=== PATIENT | male | born 1995 | race Asian ===

== ENCOUNTER 2017-01-28 10:56 | Emergency (ER) | payer SELFPAY ==
[~2017-01-28] VITALS: Ht 182.9 cm; Wt 82.0 kg
[2017-01-28 10:57] VITALS: BP 136/87; PULSE 72; RESP 20; TEMP 97.6; O2SAT 100
[2017-01-28 11:46] VITALS: RESP 20; O2SAT 98
--- NOTE | 2017-01-28 12:24 | EKG ---
Date Performed: 01/28/2017 Time Performed: 11:11:19 PTAGE: 22 years EKG: Sinus rhythm INCOMPLETE RIGHT BUNDLE BRANCH BLOCK BORDERLINE ECG NO PREVIOUS TRACING DOCTOR: Bill Voss Interpretating Date/Time 01/28/2017 12:24:01
[2017-01-28 12:28] LABS: ANION GAP 4 MEQ/L (5-15); BICARBONATE 31.1 MEQ/L (21.0-32.0); BLOOD UREA NITROGEN 17 MG/DL (7-18); CHLORIDE 106 MEQ/L (98-107); GLOMERULAR FILTRATION RATE 101 ML/MIN (>89); POTASSIUM 4.1 MEQ/L (3.5-5.1); SODIUM (NA) 141 MEQ/L (136-145)
--- NOTE | 2017-01-28 12:44 | PD ---
HPI Chief Complaint: Chest Pain Time Seen by Provider: 12:38 Travel History International Travel<30 days: No Contact w/Intl Traveler<30days: No Traveled to known affect area: No History of Present Illness HPI 22-year-old male that presents to the ED for evaluation of left-sided chest pain through to the back. Per patient she's had this on and off for the past for this. Nothing makes it better or worse. Per patient he has no injuries. He does tell me that he does do heavy lifting but denies any particular injury. He states that the pain is achy and not really severe. Per patient the pain is not reproducible with touch or with movement. 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 Patient is originally from [facility] but denies any excessive white more than 8 hours. Per patient he did flu yesterday about 2 hours for training. She denies any cardiac disease. He denies any family history of cardiac disease. He asked an allergy to penicillin. He denies any smoking or substance abuse. Allergies to penicillin. He has not seen anybody for this. Per patient he got concerned because the pain continues and is not improving. Per patient she is pain-free at this time. Per patient the pain is not constant but comes and goes. Per patient the pain is 3 out of 10. PFSH Past Medical History Medical History: Denies Significant Hx Tetanus Vaccination: > 5 Years Influenza Vaccination: Yes Past Surgical History Other Surgery: Yes (LASIK EYE SURGERY) Social History Alcohol Use: No Tobacco Use: No Substance Use: No Allergies-Medications (Allergen,Severity, Reaction): Coded Allergies: Penicillin (Verified Allergy, Unknown, 01/28/17) Reported Meds & Prescriptions Reported Meds & Active Scripts Active Zantac (Ranitidine HCl) 150 Mg Tab 150 Mg PO BID PRN Diclofenac Sodium DR (Diclofenac Sodium) 75 Mg Tabdr 75 Mg PO BID PRN Review of Systems Except as stated in HPI: all other systems reviewed are Neg Physical Exam Narrative GENERAL: SKIN: Warm and dry. HEAD: Atraumatic. Normocephalic. EYES: Pupils equal and round. No scleral icterus. No injection or drainage. ENT: No nasal bleeding or discharge. Mucous membranes pink and moist. Tongue is midline. No uvula deviation. NECK: Trachea midline. No JVD. CARDIOVASCULAR: Regular rate and rhythm. No murmurs, S3, S4. Chest pain is not reproducible with touch. No rashes noted. RESPIRATORY: No accessory muscle use. Clear to auscultation. Breath sounds equal bilaterally. GASTROINTESTINAL: Abdomen soft, non-tender, nondistended. Hepatic and splenic margins not palpable. MUSCULOSKELETAL: Extremities without clubbing, cyanosis, or edema. No obvious deformities. Full range of motion of the upper and lower extremities bilaterally. 2+ pulses bilaterally. NEUROLOGICAL: Awake and alert. No obvious cranial nerve deficits. Motor grossly within normal limits. Five out of 5 muscle strength in the arms and legs. Normal speech. PSYCHIATRIC: Appropriate mood and affect; insight and judgment normal. Data Data Last Documented VS Vital Signs Date Time Temp Pulse Resp B/P Pulse Ox O2 Delivery O2 Flow Rate FiO2 01/28/17 11:46 20 98 Room Air 01/28/17 11:41 65 01/28/17 10:57 97.6 136/87 Orders Electrocardiogram (01/28/17 ) Basic Metabolic Panel (Bmp) (01/28/17 11:29) Troponin I (01/28/17 11:29) D-Dimer (01/28/17 11:29) Chest, Single Ap (01/28/17 11:29) Iv Access Insert/Monitor (01/28/17 11:29) Ecg Monitoring (01/28/17 11:29) Oximetry (01/28/17 11:29) Labs Laboratory Tests Test 01/28/17 11:50 D-Dimer Quantitative (PE/DVT) 0.24 MG/L FEU Sodium Level 141 MEQ/L Potassium Level 4.1 MEQ/L Chloride Level 106 MEQ/L Carbon Dioxide Level 31.1 MEQ/L Anion Gap 4 MEQ/L Blood Urea Nitrogen 17 MG/DL Creatinine 0.92 MG/DL Estimat Glomerular Filtration 101 ML/MIN Rate Random Glucose 87 MG/DL Calcium Level 9.1 MG/DL Troponin I LESS THAN 0.02 NG/ML MDM Medical Decision Making Medical Screen Exam Complete: Yes Emergency Medical Condition: Yes Medical Record Reviewed: Yes Interpretation(s) BMP Diagram 01/28/17 11:50 D-dimer negative. Troponin negative. EKG show no sign of acute ischemia or arrhythmia read by me and attending. CXR negative Differential Diagnosis Chest pain versus a typical chest pain versus ACS versus PE versus pneumothorax versus pneumonia Narrative Course 22-year-old male that presents to the ED for evaluation of left-sided chest pain. Patient was properly examined and was found to have signs and symptoms of unclear etiology. I do not believe this is cardiac in nature but will do troponin and EKG to make sure there is no sign of acute disease. 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 Chest x-ray was done twice a pneumothorax or acute disease. Labs and imaging were all essentially unremarkable. Patient was reassured. From history and physical this is likely a typical chest pain most likely muscular. I will prescribe patient a prescription for diclofenac sodium to use for the pain if needed. Patient also concerning could be related to gastritis. I do not believe this is related but patient does describe it as a burning sensation at times. At his time I will give patient prescription for Zantac to cover for this althought this appears to be less likely to me. I recommend rest of the chest muscles for at least a week until completely better. Follow with PCP. See ED worsening symptoms. Diagnosis Primary Impression: Atypical chest pain Additional Impression: Chest pain, muscular Patient Instructions: General Instructions Additional Instructions: Take medication as prescribed. Do not do any heavy lifting with your chest until completely better. Per properly for about a week. Apply ice or warm compresses to the area of pain if you have any. Follow closely with PCP if this continues to be an issue. See ED if worsening symptoms. Med/Other Pt SpecificInfo: Prescription(s) given Scripts Ranitidine (Zantac)150 Mg Rat638 Mg PO BID PRN (PAIN SCALE 1 TO 10) #20 TAB Prov:Ken Tesfaye MD 01/28/[address] 75 Mg Tabdr75 Mg PO BID PRN (PAIN SCALE 1 TO 10) #20 TAB Prov:Ken Tesfaye MD 01/28/17 Disposition: 01 DISCHARGE HOME Condition: Stable Bradley Carpenter Jan 28, 2017 12:44
[2017-01-28] MEDS ORDERED: DICL75TA PO (12:54)
--- NOTE | 2017-01-28 12:54 | RADRPT ---
EXAM DATE/TIME: 01/28/2017 11:47 [facility] COMPARISON: No previous studies available for comparison. INDICATIONS : Chest discomfort of the left side for 2 days. MEDICAL HISTORY : None. SURGICAL HISTORY : ENCOUNTER: Initial ACUITY: 2 days PAIN SCORE: 2/10 LOCATION: Left chest FINDINGS: A single view of the chest demonstrates the lungs to be symmetrically aerated without evidence of mas s, infiltrate or effusion. The cardiomediastinal contours are unremarkable. Osseous structures are intact. CONCLUSION: 1. No acute cardiopulmonary disease. Kishor Francis MD on January 28, 2017 at 12:51 Board Certified Radiologist. This report was verified electronically.
[2017-01-28] MEDS ORDERED: ZANT150T2 PO (13:07)
[2017-01-28 13:29] VITALS: BP 108/63; PULSE 66; RESP 20; O2SAT 99
== END 2017-01-28 13:55 | disposition home or self-care (01) ==
LOC: NEPE 10:56
DX: R07.89 Other chest pain (principal); R94.31 Abnormal electrocardiogram [ECG] [EKG]; Z88.0 Allergy status to penicillin
CPT/HCPCS: 71010; 80048; 84484; 85379; 93005